=== PATIENT | female | born 1950 ===

== ENCOUNTER 2018-09-21 16:41 | Emergency (ER) | payer MEDICARE ==
[2018-09-21 16:41] VITALS: BMI 29.8
[2018-09-21 16:56] VITALS: RESP 18; O2SAT 99
[2018-09-21] MEDS ORDERED: Sodium Chloride 0.9% 1,000 ML IV STA (17:04)
--- NOTE | 2018-09-21 17:18 | ED PDOC ---
HPI: Back Time Seen by Provider: 09/21/18 16:50 Chief Complaint (Nursing): Back Pain Chief Complaint (Provider): Back Pain History Per: Patient Onset/Duration Of Symptoms: Hrs (8x hours) Current Symptoms Are (Timing): Still Present Severity: Moderate Exacerbating Factor(s): Movement Additional Complaint(s): 68 year old female with a past medical history of kidney stones presents to the ED for an evaluation of left flank pain that started 8x hours prior to arrival. Patient states that she was awoken this morning by left sided flank pain, that worsens with movement, and also complains of mild burning with urination. Patient denies having vomiting, fevers, chills, and taking medication for pain prior to arrival. PMD: Kaitlynn Cerda MD Past Medical History Reviewed: Historical Data, Nursing Documentation, Vital Signs Vital Signs: Last Vital Signs Temp 97.8 F 09/21/18 16:51 Pulse 78 09/21/18 16:51 Resp 18 09/21/18 16:51 BP 182/83 H 09/21/18 16:51 Pulse Ox 99 09/21/18 16:51 ISADORA Report Viewed: Yes - Medical History PMH: Diabetes, Fractures (left elbow left ankle), HTN, Hypercholesterolemia, Kidney Stones Denies: Chronic Kidney Disease - Surgical History Surgical History: Appendectomy, Endoscopy - Family History Family History: States: No Known Family Hx - Social History Current smoker - smoking cessation education provided: No Alcohol: None Drugs: Denies - Immunization History Hx Tetanus Toxoid Vaccination: No Hx Influenza Vaccination: Yes Hx Pneumococcal Vaccination: No - Home Medications Home Medications: Ambulatory Orders Medication Instructions Recorded Cyclobenzaprine [Flexeril] 5 mg PO TID #21 tab 05/24/17 Ibuprofen [Motrin] 1 tab PO TID PRN #30 tab 05/24/17 Atorvastatin [Lipitor] 20 mg PO DAILY 09/19/17 Enalapril/Hydrochlorothiazide 1 tab PO DAILY 09/19/17 [Enalapril-Hctz 10-25 mg Tablet] FLUoxetine [Prozac] 10 mg PO DAILY 09/19/17 RX: Metoprolol Succinate 50 mg PO DAILY 09/19/17 Ciprofloxacin HCl [Cipro] 500 mg PO BID #14 tablet 09/21/18 RX: Naproxen 375 mg PO Q8 PRN #21 tablet 09/21/18 - Allergies Allergies/Adverse Reactions: Allergies Allergy/AdvReac Type Severity Reaction Status Date / Time lactose AdvReac NAUSEA Verified 09/21/18 16:51 Review of Systems ROS Statement: Except As Marked, All Systems Reviewed And Found Negative Constitutional: Negative for: Fever, Chills Gastrointestinal: Negative for: Vomiting Genitourinary Female: Positive for: Dysuria (mild) Musculoskeletal: Positive for: Back Pain (left flank pain) Physical Exam - Reviewed Nursing Documentation Reviewed: Yes Vital Signs Reviewed: Yes - Physical Exam Appears: Positive for: Well, Non-toxic, No Acute Distress Head Exam: Positive for: ATRAUMATIC, NORMOCEPHALIC Skin: Positive for: Normal Color, Warm, Dry Cardiovascular/Chest: Positive for: Regular Rate, Rhythm Respiratory: Positive for: Normal Breath Sounds Gastrointestinal/Abdominal: Positive for: Normal Exam, Soft. Negative for: Tenderness Back: Positive for: Other (left flank and paralumbar tenderness) Neurologic/Psych: Positive for: Alert, Oriented (3x) - Laboratory Results Result Diagrams: 09/21/18 17:20 09/21/18 18:35 - ECG O2 Sat by Pulse Oximetry: 99 (RA) Pulse Ox Interpretation: Normal - Progress ED Course And Treament: toradol 15 mg iv x 1 dose NS 1 liter wide open rocephin 1gm iv x 1 dose morphine 2 mg iv x 1 dose Medical Decision Making Medical Decision Makin:50 Initial impression: 68 year old female with left flank pain Initial plan: * CT abd and pelvis w/o contrast * CMP * lipase * CBC w/ diff * urine culture * urinalysis * IV NS 1,000 ml IV 500 mls/hr * toradol 15 mg IVP * zofran 4 mg IVP * reevaluation 18:17 CT abdomen and pelvis read and reviewed by radiologist FINDINGS: LUNG BASES: The lung bases appear clear. No pleural effusions are seen. LIVER: Unremarkable. GALLBLADDER AND BILE DUCTS: The gallbladder appears within normal limits. No radioopaque gallstones are seen. No biliary ductal dilatation is evident. PANCREAS: Unremarkable. SPLEEN: Unremarkable. ADRENAL GLANDS: Unremarkable. KIDNEYS, URETERS, AND BLADDER: The kidneys appear within normal limits. There is no hydronephrosis or hydroureter. Tiny nonobstructing calculus is seen at the midportion left kidney. STOMACH AND BOWEL: Unremarkable appearance of the stomach and bowel. No evidence of bowel obstruction. No evidence suggesting enteritis or colitis. APPENDIX: No evidence of acute appendicitis on CT examination. PERITONEUM: No free fluid. No free air. LYMPH NODES: No lymphadenopathy is evident. VASCULATURE: No evidence of abdominal aortic aneurysm. BONES: No aggressive appearing osseous lesion. No acute osseous pathology evident. Diffuse moderately advanced hypertrophic and degenerative changes lumbar spine. IMPRESSION: Tiny nonobstructing calculus midportion left kidney. Hypertrophic and degenerative changes lumbar spine. If symptoms persist correlation with the dedicated contrast-enhanced CT examination of the urinary system may be considered. Scribe Attestation: Documented by Stephani Wasserman, acting as a scribe for Vandana Wetzel PA-C. Provider Scribe Attestation: All medical record entries made by the Scribe were at my direction and personally dictated by me. I have reviewed the chart and agree that the record accurately reflects my personal performance of the history, physical exam, medical decision making, and the department course for this patient. I have also personally directed, reviewed, and agree with the discharge instructions and disposition. Disposition - Clinical Impression Clinical Impression: Pyelonephritis - Patient ED Disposition Is Patient to be Admitted: No - Disposition Disposition: Routine/Home Disposition Time: 20:24 Condition: FAIR Prescriptions: Ciprofloxacin HCl [Cipro] 500 mg PO BID #14 tablet RX: Naproxen 375 mg PO Q8 PRN #21 tablet PRN Reason: Pain, Moderate (4-7) Instructions: Kidney Infection (DC) Print Language: MICRONESIAN
[2018-09-21 18:28] LABS: SQUAMOUS EPITHIAL 8 /hpf (0-5); URINE BACTERIA RARE (<OCC); URINE BILIRUBIN NEGATIVE (NEGATIVE); URINE BLOOD MODERATE (NEGATIVE); URINE CLARITY SLIGHTY-CLOUDY (Clear); URINE COLOR STRAW (YELLOW); URINE GLUCOSE (UA) NEG (NEGATIVE); URINE LEUKOCYTE ESTERASE MOD Leu/uL (Negative); URINE PROTEIN NEGATIVE (NEGATIVE); URINE UROBILINOGEN 0.2-1.0 mg/dL (0.2-1.0)
[2018-09-21 18:41] LABS: BASO # 0.1 K/uL (0.0-0.2); BASO % 0.6 % (0.0-2.0); EOS # 0.1 K/uL (0.0-0.7); LYMPH % 26.7 % (20.0-40.0); MEAN CELL VOLUME 85.1 fl (81.0-99.0); MEAN CORPUSCULAR HEMOGLOBIN 27.6 pg (27.0-31.0); MEAN CORPUSCULAR HGB CONC 32.5 g/dL (33.0-37.0); MEAN PLATELET VOLUME 9.8 fl (7.2-11.7); MONO % 6.4 % (0.0-10.0); NEUT # 9.9 K/uL (1.8-7.0); NEUT % 65.3 % (50.0-75.0); NRBC % 0.1 % (0.0-0.0); RBC 4.35 Mil/uL (3.80-5.20); RED CELL DISTRIBUTION WIDTH 15.8 % (11.5-14.5); WHITE BLOOD COUNT 15.1 K/uL (4.8-10.8)
[2018-09-21 18:58] LABS: BLOOD UREA NITROGEN 19 mg/dl (7-17); CALCIUM 9.1 mg/dL (8.4-10.2); GFR NON-AFRICAN AMERICAN > 60; LIPASE 184 U/L (23-300)
[2018-09-21] MEDS ORDERED: cefTRIAXone (Rocephin) 1 gm Inj IVPB ONE (19:06)
[2018-09-21 19:14] LABS: ALB/GLOB RATIO 1.1 (1.0-2.1); ALBUMIN 4.3 g/dL (3.5-5.0); ALT/SGPT 23 U/L (9-52); AST/SGOT 47 U/L (14-36)
[2018-09-21 19:38] LABS: VENOUS BLOOD GAS PCO2 45 mmHg (40-60); VENOUS BLOOD GAS PO2 45 mm/Hg (30-55); VENOUS BLOOD PH 7.38 (7.32-7.43)
[2018-09-21] MEDS ORDERED: cefTRIAXone (Rocephin) 1 gm Inj ONE (19:54)
[2018-09-21 22:00] VITALS: BP 148/71; PULSE 72; TEMP 98.7
--- NOTE | 2018-09-22 12:33 | CT ---
Date of service: 09/21/2018 PROCEDURE: CT Abdomen and Pelvis HISTORY: Rule out renal calculi COMPARISON: Comparison made with prior CT scan of the abdomen pelvis 10/24/2015. The the TECHNIQUE: Contiguous axial images of the abdomen and pelvis. No oral or IV contrast was administered. 2D sagittal and coronal reformats generated. Radiation dose: Total exam DLP = 909.63 mGy-cm. This CT exam was performed using one or more of the following dose reduction techniques: Automated exposure control, adjustment of the mA and/or kV according to patient size, and/or use of iterative reconstruction technique. FINDINGS: LOWER THORAX: Heart size is mildly enlarged. No significant pericardial effusion. There is a small hiatal hernia. Mild passive/dependent type atelectasis both posterior lower lung neff. LIVER: Liver exhibits relatively normal size and attenuation pattern without masses collections or calcifications. Should GALLBLADDER AND BILE DUCTS: Unremarkable. PANCREAS: Unremarkable. No mass. No ductal dilatation. SPLEEN: Unremarkable. No splenomegaly. ADRENALS: Slightly nodular appearing left adrenal gland KIDNEYS AND URETERS: There is a tiny 2.5 mm nonobstructing calcification seen in the lower pole collecting system left kidney the with no hydronephrosis. no right renal calculi. BLADDER: Urinary bladder is incompletely distended which presumably accounts for slight thick-walled appearance however correlation with urinalysis recommended to exclude cystitis.. REPRODUCTIVE: Grossly unremarkable on this limited noncontrast exam the. APPENDIX: Appendix is not seen with any certainty however no evidence to suggest acute appendicitis. BOWEL: Evaluation of the bowel is somewhat limited due to the lack of oral contrast material. The stomach is incompletely distended with thick-walled appearance. Visualized loops of small bowel exhibit normal contour and caliber. No evidence of acute mechanical small bowel obstruction. There appear to be a few scattered colonic diverticula however no radiographic evidence of acute diverticulitis. PERITONEUM: Unremarkable. No fluid collection. No free air. Small fat containing umbilical hernia. LYMPH NODES: Unremarkable. No enlarged lymph nodes. VASCULATURE: Unremarkable. No aortic aneurysm. Mild aortic atherosclerotic calcification or mural plaque present. BONES: Mild multilevel degenerative spondylosis of the lower thoracic and lumbar spine. No acute fractures. OTHER FINDINGS: There are scattered small calcified injection granulomata both buttocks. IMPRESSION: There is a tiny 2.5 mm nonobstructing calculus lower pole collecting system left kidney. .Mildly nodular appearing left adrenal gland.
== END 2018-09-21 22:00 | disposition home or self-care (01) ==
LOC: H.ER 16:41
DX: N12 Tubulo-interstitial nephritis, not specified as acute or chronic (principal); E11.9 Type 2 diabetes mellitus without complications; Z79.899 Other long term (current) drug therapy; E78.00 Pure hypercholesterolemia, unspecified; I10 Essential (primary) hypertension; N20.0 Calculus of kidney
CPT/HCPCS: 74176; 80053; 81003; 82803; 83690; 85025; 87040; 87086; 87149; 87181; 87205; 96361; 96365; 96375; 99283; J0696; J1885; J2405; J7030

== ENCOUNTER 2018-09-23 14:44 | Emergency (ER) | payer MEDICARE ==
[2018-09-23 14:51] VITALS: BMI 31.1
[2018-09-23 15:38] LABS: SQUAMOUS EPITHIAL 7 /hpf (0-5); URINE BACTERIA RARE (<OCC); URINE BILIRUBIN NEGATIVE (NEGATIVE); URINE BLOOD MODERATE (NEGATIVE); URINE CLARITY CLOUDY (Clear); URINE COLOR YELLOW (YELLOW); URINE GLUCOSE (UA) NEG (NEGATIVE); URINE LEUKOCYTE ESTERASE LARGE Leu/uL (Negative); URINE PROTEIN NEGATIVE (NEGATIVE); URINE UROBILINOGEN 0.2-1.0 mg/dL (0.2-1.0)
[2018-09-23 15:49] LABS: BASO # 0.1 K/uL (0.0-0.2); BASO % 0.6 % (0.0-2.0); EOS # 0.1 K/uL (0.0-0.7); EOS % 1.1 % (0.0-4.0); LYMPH # 2.7 K/uL (1.0-4.3); MEAN CELL VOLUME 85.2 fl (81.0-99.0); MEAN CORPUSCULAR HEMOGLOBIN 27.8 pg (27.0-31.0); MEAN CORPUSCULAR HGB CONC 32.6 g/dL (33.0-37.0); MEAN PLATELET VOLUME 8.2 fl (7.2-11.7); MONO # 0.5 K/uL (0.0-0.8); MONO % 4.8 % (0.0-10.0); NEUT # 7.3 K/uL (1.8-7.0); NEUT % 68.5 % (50.0-75.0); RBC 4.32 Mil/uL (3.80-5.20); RED CELL DISTRIBUTION WIDTH 15.3 % (11.5-14.5); WHITE BLOOD COUNT 10.7 K/uL (4.8-10.8)
[2018-09-23 16:17] LABS: ALB/GLOB RATIO 1.1 (1.0-2.1); ALT/SGPT 31 U/L (9-52); AST/SGOT 35 U/L (14-36); BLOOD UREA NITROGEN 17 mg/dl (7-17); CALCIUM 9.2 mg/dL (8.4-10.2); GFR NON-AFRICAN AMERICAN > 60
--- NOTE | 2018-09-23 16:23 | US ---
Date of service: 09/23/2018 PROCEDURE: Ultrasound of the Kidneys HISTORY: L sided back pain with UTI COMPARISON: 03/26/2008 abdominal ultrasound including kidneys. TECHNIQUE: Sonogram of the kidneys. FINDINGS: RIGHT KIDNEY: Measures: 4.7 x 10.1 cm. Normal in size, contour and echogenicity. No stone, solid mass lesion or hydronephrosis visualized. LEFT KIDNEY: Measures: 4.5 x 11.0 cm. Normal in size, contour and echogenicity. No stone, solid mass lesion or hydronephrosis visualized. OTHER FINDINGS: None. IMPRESSION: Unremarkable renal sonogram.No significant interval change compared to the prior examination(s).
--- NOTE | 2018-09-23 17:05 | ED PDOC ---
HPI: General Adult Time Seen by Provider: 09/23/18 14:55 Chief Complaint (Nursing): Abnormal Labs History Per: Patient Additional Complaint(s): Pt. states she was asked to come to ED today for positive blood cultures. States she was in ED on 09/21/2018 and dx with a UTI and dc'd with Cipro. Reports that she is feeling better but is still having pain in the L lower back. She began taking her Cipro today. Reports no fever or chills. Denies hematuria, dysuria, frequency, trauma, abd pain, N/V/D, weakness, antipyretic use. Past Medical History Reviewed: Historical Data, Nursing Documentation, Vital Signs Vital Signs: Last Vital Signs Temp 97.5 F L 09/23/18 15:08 Pulse 77 09/23/18 14:52 Resp 18 09/23/18 14:52 BP 166/79 H 09/23/18 14:52 Pulse Ox 97 09/23/18 14:52 - Medical History PMH: Diabetes, Fractures (left elbow left ankle), HTN, Hypercholesterolemia, Kidney Stones Denies: Chronic Kidney Disease - Surgical History Surgical History: Appendectomy, Endoscopy - Family History Family History: States: No Known Family Hx - Immunization History Hx Tetanus Toxoid Vaccination: No Hx Influenza Vaccination: Yes Hx Pneumococcal Vaccination: No - Home Medications Home Medications: Ambulatory Orders Medication Instructions Recorded Cyclobenzaprine [Flexeril] 5 mg PO TID #21 tab 05/24/17 Ibuprofen [Motrin] 1 tab PO TID PRN #30 tab 05/24/17 Atorvastatin [Lipitor] 20 mg PO DAILY 09/19/17 Enalapril/Hydrochlorothiazide 1 tab PO DAILY 09/19/17 [Enalapril-Hctz 10-25 mg Tablet] FLUoxetine [Prozac] 10 mg PO DAILY 09/19/17 Metoprolol Succinate 50 mg PO DAILY 09/19/17 Ciprofloxacin HCl [Cipro] 500 mg PO BID #14 tablet 09/21/18 Naproxen 375 mg PO Q8 PRN #21 tablet 09/21/18 - Allergies Allergies/Adverse Reactions: Allergies Allergy/AdvReac Type Severity Reaction Status Date / Time lactose AdvReac NAUSEA Verified 09/21/18 16:51 Review of Systems ROS Statement: Except As Marked, All Systems Reviewed And Found Negative Musculoskeletal: Positive for: Back Pain Physical Exam - Physical Exam Appears: Positive for: Well, Non-toxic, No Acute Distress Skin: Positive for: Normal Color, Warm. Negative for: Rash Eye Exam: Positive for: Normal appearance Cardiovascular/Chest: Positive for: Regular Rate, Rhythm Respiratory: Positive for: Normal Breath Sounds. Negative for: Respiratory Distress Gastrointestinal/Abdominal: Positive for: Normal Exam, Bowel Sounds, Soft. Negative for: Tenderness Back: Positive for: Normal Inspection, Muscle Spasm (L sided paralumbar tenderness). Negative for: L CVA Tenderness, R CVA Tenderness, Vertebral T enderness Neurologic/Psych: Positive for: Alert, Oriented (x3) - Laboratory Results Result Diagrams: 09/23/18 15:34 09/23/18 15:34 - ECG O2 Sat by Pulse Oximetry: 97 - Progress ED Course And Treament: Labs, renal US, blood culture x2, urine culture ordered. [address] Kaitlynn Napier (PMD) 1715 2nd call placed to PMD. 1810 3rd call placed. Pt. offers no complaints. WBC improved. Rocephin 1gm IV ordered. Case d/w Dr. Corley who recommends contacting PMD to set up f/u appointment as labs WBC is improved and pt. feels much better and does not require admission at this time. 1914 Case d/w Dr. Napier and all results given. States pt. can f/u in her office on Sunday. Pt. informed of results and agrees with plan and care. Pt. told to continue Cipro but is to return to ED immediately if symptoms worsen. Pt. verbalized understanding of correct plan and care. Disposition - Clinical Impression Clinical Impression: UTI (urinary tract infection) - Patient ED Disposition Is Patient to be Admitted: No - Disposition Referrals: Kaitlynn Cerda MD [Medical Doctor] - Disposition: Routine/Home Disposition Time: 19:29 Condition: IMPROVED Additional Instructions: CONTINUE TAKING YOUR CIPRO PREVIOUSLY PRESCRIBED WITHOUT FAIL FOLLOW UP WITH DR. NAPIER WITHOUT FAIL RETURN TO ED IMMEDIATELY IF SYMPTOMS WORSEN MILLICENT [place], thank you for letting us take care of you today. Your provider was Khanh Corley MD and you were treated for ABNORMAL LABS. The emergency medical care you received today was directed at your acute symptoms. If you were prescribed any medication, please fill it and take as directed. It may take several days for your symptoms to resolve. Return to the Emergency Department if your symptoms worsen, do not improve, or if you have any other problems. Please contact your doctor or call one of the physicians/clinics you have been referred to that are listed on the Patient Visit Information form that is included in your discharge packet. Bring any paperwork you were given at discharge with you along with any medications you are taking to your follow up visit. Our treatment cannot replace ongoing medical care by a primary care provider outside of the emergency department. Thank you for allowing the [facility] team to be part of your care today. If you had an X-Ray or CT scan: A Radiologist will review the ED reading if any change in treatment is needed we will contact you. If you had a blood, urine, or wound culture: It will take several days for the results, if any change in treatment is needed we will contact you. If you had an STI test: It will take 48 hours for the results. Please call after 1 week if you have not heard back. Instructions: Urinary Tract Infection, Adult (DC) Forms: [facility] (Nigerien) Print Language: TRISTANIAN
[2018-09-23] MEDS ORDERED: cefTRIAXone (Rocephin) 1 gm Inj ONE (18:54)
[2018-09-23 19:39] VITALS: BP 145/89; PULSE 87; RESP 16; TEMP 98.2; O2SAT 98
== END 2018-09-23 20:13 | disposition home or self-care (01) ==
LOC: H.ER 14:44
DX: N39.0 Urinary tract infection, site not specified (principal); E11.9 Type 2 diabetes mellitus without complications; I10 Essential (primary) hypertension; Z87.442 Personal history of urinary calculi
CPT/HCPCS: 76770; 80053; 81003; 85025; 87040; 87086; 87804; 96365; 99282; J0696